=== PATIENT | female | born 2000 | race American Indian/Alaskan Native ===

== ENCOUNTER 2021-04-12 20:40 | Inpatient (IN) | payer MEDICAID ==
[2021-04-12] MEDS ORDERED: ACETAMINOPHEN 325 MG TAB PO PRN (21:37)
[2021-04-12] MEDS ORDERED: MINERAL OIL 30 ML ORAL LIQD PO PRN (21:37)
[2021-04-12] MEDS ORDERED: miSOPROStol 200 MCG TAB PR PRN (21:37)
[2021-04-12] MEDS ORDERED: METHYLERGONOVINE MALEATE 0.2 MG/ML VIAL IM PRN (21:37)
[2021-04-12] MEDS ORDERED: LOPERAMIDE 2 MG CAP PO PRN (21:37)
[2021-04-12] MEDS ORDERED: BUTORPHANOL 2 MG/1 ML INJ IV PRN (21:37)
[2021-04-12] MEDS ORDERED: ePHEDrine SULFATE 50 MG/1 ML INJ IV PRN (21:37)
[2021-04-12] MEDS ORDERED: LIDOCAINE (2%) 20 MG/1 ML VIAL 20 ML MDV INFILTRATI ONE (21:37)
[2021-04-12] MEDS ORDERED: NALOXONE 0.4 MG/1 ML INJ IV PRN (21:37)
[2021-04-12] MEDS ORDERED: CARBOPROST TROMETHAMINE 250 MCG/1 ML INJ IM PRN (21:37)
[2021-04-12] MEDS ORDERED: ONDANSETRON 4 MG/2 ML INJ IV PRN (21:37)
[2021-04-12] MEDS ORDERED: OXYTOCIN 10 UNIT/1 ML INJ IM PRN (21:37)
[2021-04-12] MEDS ORDERED: TERBUTALINE 1 MG/1 ML INJ SUB-Q PRN (21:37)
[2021-04-12] MEDS ORDERED: fentaNYL 100 MCG/2 ML INJ IV PRN (21:37)
[2021-04-12] MEDS ORDERED: OXYTOCIN DRIP 30 UNITS/500 ML BAG IV SCH ×2 (22:00)
[2021-04-12] MEDS ORDERED: DINOPROSTONE 10 MG VAG SUPP VG ONE (23:00)
[2021-04-12] MEDS: LACTATED RINGERS 1,000 ML IV SCH (23:45)
[2021-04-12 23:48] LABS: Hematocrit 33.1 % (30.3-42.9); Hemoglobin 11.2 gm/dl (10.1-14.3); Mean Corpuscular HGB Conc 34 % (30-34); Mean Corpuscular Volume 91 fl (79-97); Platelet Count 212 K/mm3 (140-440); Red Blood Count 3.65 M/mm3 (3.65-5.03); Red Cell Distribution Width 13.6 % (13.2-15.2)
[2021-04-13] MEDS: LACTATED RINGERS 1,000 ML IV SCH ×2 (04:22→16:39)
[2021-04-13] MEDS ORDERED: LEVOTHYROXINE 112 MCG TAB PO SCH (06:00)
--- NOTE | 2021-04-13 07:02 | History and Physical Report ---
History of Present Illness Date of examination: 04/13/21 Date of admission: 04/12/21 20:40 Chief complaint: scheduled induction of labor History of present illness: Pt is a 20 year old -Citizen Of [place] female primigravida ANGELA 04/25/21 at 38w2d who presents for scheduled induction of labor secondary to asymmetric IUGR. She denies vaginal bleeding, leakage of fluid or contractions. She has had care at [place] [facility] OUTFIT[facility] with comanagement by M since transferring to care at 29 weeks complicated by hypothyroidism after thyroidectomy and radiation secondary to thyroid malignancy currently on levothyroxine 224 mcg daily and obesity. She is GBS negative. Past History Past Medical History: thyroid disease Past Surgical History: thyroid Social history: no significant social history - Obstetrical History Expected Date of Delivery: 04/25/21 Actual Gestation: 38 Week(s) 2 Day(s) : 1 Medications and Allergies Allergies Allergy/AdvReac Type Severity Reaction Status Date / Time No Known Allergies Allergy Verified 04/12/21 22:49 Home Medications Medication Instructions Recorded Confirmed Last Taken Type Levothyroxine 300 mg PO DAILY 04/12/21 04/12/21 04/10/21 History 300 MG Vitamin 1 mg PO DAILY 04/12/21 04/12/21 04/10/21 History 1 Active Meds: Active Medications Acetaminophen (Acetaminophen 325 Mg Tab) 650 mg PO Q4H PRN PRN Reason: Pain, Mild (1-3) Last Admin: 04/13/21 03:13 Dose: 650 mg Documented by: Butorphanol Tartrate (Butorphanol 2 Mg/1 Ml Inj) 1 mg IV Q2H PRN PRN Reason: Pain, Moderate(4-6) LABOR PAIN Carboprost Tromethamine (Carboprost Tromethamine 250 Mcg/1 Ml Inj) 250 mcg IM ONCE PRN PRN Reason: Uterine Bleeding Ephedrine Sulfate (Ephedrine Sulfate 50 Mg/1 Ml Inj) 10 mg IV Q2M PRN PRN Reason: Hypotension Fentanyl (Fentanyl 100 Mcg/2 Ml Inj) 100 mcg IV Q2H PRN PRN Reason: Pain,Severe (7-10) LABOR PAIN Last Admin: 04/13/21 05:33 Dose: 100 mcg Documented by: Oxytocin/Sodium Chloride (Pitocin/Ns 30 Unit/500ml) 30 units in 500 mls @ 2 mls/hr IV TITR TONYA; Protocol Lactated Ringer's (Lactated Ringers) 1,000 mls @ 125 mls/hr IV DIRECT TONYA Last Admin: 04/13/21 04:22 Dose: 125 mls/hr Documented by: Oxytocin/Sodium Chloride (Pitocin/Ns 30 Unit/500ml) 30 units in 500 mls @ 40 mls/hr IV TITR TONYA; Protocol Levothyroxine Sodium (Levothyroxine 112 Mcg Tab) 224 mcg PO DAILY@0600 TONYA Last Admin: 04/13/21 05:35 Dose: 224 mcg Documented by: Loperamide HCl (Loperamide 2 Mg Cap) 2 mg PO ONCE PRN PRN Reason: give with Hemabate Methylergonovine Maleate (Methylergonovine Maleate 0.2 Mg/Ml Vial) 0.2 mg IM ONCE PRN PRN Reason: Uterine Bleeding Mineral Oil (Mineral Oil 30 Ml Oral Liqd) 30 ml PO QHS PRN PRN Reason: Constipation Misoprostol (Misoprostol 200 Mcg Tab) 800 mcg NH ONCE PRN PRN Reason: Uterine Bleeding Naloxone HCl (Naloxone 0.4 Mg/1 Ml Inj) 0.1 mg IV Q2MIN PRN PRN Reason: Res Rate </= 8 or 02 SAT < 92% Ondansetron HCl (Ondansetron 4 Mg/2 Ml Inj) 4 mg IV Q8H PRN PRN Reason: Nausea And Vomiting Last Admin: 04/13/21 05:33 Dose: 4 mg Documented by: Oxytocin (Oxytocin 10 Unit/1 Ml Inj) 10 unit IM ONCE PRN PRN Reason: Uterine Bleeding Review of Systems All systems: negative - Vital Signs Vital signs: Vital Signs Temp Pulse Resp BP Pulse Ox 98.1 F 84 18 112/70 98 04/12/21 22:20 04/12/21 22:20 04/12/21 22:20 04/12/21 22:20 04/12/21 22:20 Temp Pulse Resp BP Pulse Ox 98.1 F 100 H 18 116/58 97 04/12/21 22:20 04/13/21 06:53 04/13/21 04:13 04/13/21 06:21 04/13/21 06:53 - Physical Exam Abdomen: Positive: soft (gravid, obese ) Uterus: Positive: enlarged (gravid ) Extremities: Positive: normal - Obstetrical FHR: auscultation normal Cervical Dilatation: 0 Uterine Contraction Pattern: Irregular Uterine Tone Measurement Phase: Resting Uterine Contraction Intensity: Mild Results Result Diagrams: 04/12/21 23:15 All other labs normal. Assessment and Plan A: IUP at 38w2d Asymmetric IUGR Hypothyroidism on Levothyroxine Obesity GBS Negative P: Admit to labor and delivery Levothyroxine 224 mcg daily Cervical ripening with Cervidil Routine intrapartum care
[2021-04-13] MEDS ORDERED: miSOPROStol 25 MCG TAB PO SCH (10:00)
[2021-04-13] MEDS ORDERED: NALOXONE 2 MG/2 ML INJ IV PRN (12:56)
[2021-04-13] MEDS ORDERED: ePHEDrine SULFATE 50 MG/1 ML INJ IV PRN (12:56)
[2021-04-13] MEDS ORDERED: diphenhydrAMINE 50 MG/ML VIAL IV PRN (12:56)
[2021-04-13] MEDS ORDERED: ONDANSETRON 4 MG/2 ML INJ IV PRN ×2 (12:56→17:16)
[2021-04-13] MEDS ORDERED: NalbUPHINE 10 MG/1 ML INJ IV PRN (12:56)
--- NOTE | 2021-04-13 13:21 | Anesthesia Consultation ---
Anesthesia Consult and Med Hx Date of service: 04/13/21 - Airway Anesthetic Teeth Evaluation: Good ROM Head & Neck: Adequate Mental/Hyoid Distance: Adequate Mallampati Class: Class III Intubation Access Assessment: Probably Good - Pulmonary Exam CTA: Yes - Cardiac Exam Cardiac Exam: RRR - Pre-Operative Health Status ASA Pre-Surgery Classification: ASA2 Proposed Anesthetic Plan: Epidural - Pulmonary Hx Smoking: No Hx Asthma: No COPD: No Hx Pneumonia: No Hx Sleep Apnea: No - Cardiovascular System Hx Hypertension: No Hx Heart Attack/AMI: No Hx Angina: No - Central Nervous System Hx Seizures: No Hx Psychiatric Problems: No - Gastrointestinal Hx Gastroesophageal Reflux Disease: No - Endocrine Hx Renal Disease: No Hx End Stage Renal Disease: No Hx Liver Disease: No Hx Insulin Dependent Diabetes: No Hx Non-Insulin Dependent Diabetes: No Hx Hypothyroidism: Yes Hx Hyperthyroidism: No - Hematic Hx Anemia: No Hx Sickle Cell Disease: No - Other Systems Hx Alcohol Use: No
--- NOTE | 2021-04-13 13:22 | Progress Note ---
Labor Epidural - Labor Epidural Start Time: 13:04 Stop Time: 13:15 Performed by:: CISCO CANDELARIO Procedure: Patient is requesting epidural for labor and pain. H&P, labs were reviewed. Patient IDed, H&P reviewed, all questions and concerns were answered, and consent was signed. Timeout was performed at bedside. Patient in sitting position. Sterile prep and drape was performed. 3ml of 1% lidocaine skin wheal at L[3]- L [4]. 18-gauge Tuohy epidural needle was advanced to loss of resistance with air technique 7cm. Negative CSF negative blood. Epidural catheter advanced to [12] centimeters. [negative] Aspiration [negative] test dose. Sterile dressing applied. Patient tolerated procedure.
[2021-04-13] MEDS ORDERED: fentaNYL-BUPIV 2 MCG/ML-0.125% 200 MCG/100 ML BAG EPIDURAL SCH (14:00)
[2021-04-13] MEDS ORDERED: LACTATED RINGERS 250 ML IV SOLN IV ONE (14:00)
[2021-04-13] MEDS ORDERED: miSOPROStol 25 MCG TAB VG SCH (16:00)
[2021-04-13] MEDS ORDERED: LACTATED RINGERS 1,000 ML IV SCH (17:15)
[2021-04-13] MEDS ORDERED: BICITRA ORAL LIQD 30ML ONE (17:15)
[2021-04-13] MEDS ORDERED: HYDROmorphone 1 MG/1 ML INJ IV PRN (17:16)
[2021-04-13] MEDS ORDERED: NALOXONE 0.4 MG/1 ML INJ IV PRN ×2 (17:16→21:34)
[2021-04-13] MEDS ORDERED: FAMOTIDINE 20 MG/2 ML INJ IV ONE ×2 (17:16→18:00)
[2021-04-13] MEDS ORDERED: PROMETHAZINE 25 MG TAB PO PRN (17:16)
[2021-04-13] MEDS ORDERED: PROMETHAZINE 25 MG RECT SUPP PR PRN (17:16)
[2021-04-13] MEDS ORDERED: ceFAZolin/Water 2 GM/20 ML 2 GM/20 ML SYRINGE IV ONE (17:17)
[2021-04-13] MEDS ORDERED: OXYTOCIN DRIP 30 UNITS/500 ML BAG IV SCH ×2 (18:00→21:34)
[2021-04-13] MEDS ORDERED: BUPIVACAINE/PF (0.25%) 2.5 MG/ML 30 ML VIAL INFILTRATI ONE (18:03)
[2021-04-13] MEDS ORDERED: KETOROLAC 30 MG/1 ML INJ ONE (18:03)
[2021-04-13] MEDS ORDERED: LIDOCAINE 2%/EPINEPHRINE 1:200,000 VIAL (20 ML) INFILTRATI ONE (18:03)
[2021-04-13] MEDS ORDERED: dexAMETHasone 20 MG/5 ML VIAL ONE (18:03)
[2021-04-13] MEDS ORDERED: LACTATED RINGERS 1,000 ML ONE (18:07)
[2021-04-13] MEDS ORDERED: BICITRA ORAL LIQD 30ML PO ONE (18:30)
[2021-04-13] MEDS ORDERED: METOCLOPRAMIDE 10 MG/2 ML INJ IV ONE (18:30)
[2021-04-13] MEDS ORDERED: OXYTOCIN 10 UNIT/1 ML INJ ONE (18:50)
--- NOTE | 2021-04-13 19:06 | Procedure Note ---
OB Delivery Note - Delivery Date of Delivery: 04/13/21 Surgeon: YUNIEL JERRY Estimated blood loss: other (445 mL) - Section Preop diagnosis: nonreassuring FHR tracing Postop diagnosis: same section procedure: section, primary low transverse Disposition: PACU Narrative: Please see operative report - Infant A at 1 minute: 8 at 5 minutes: 9 Infant Gender: Female (2420g (5lb 5oz) @ 1809 pm)
--- NOTE | 2021-04-13 19:30 | Operative Report ---
Operative Report Operative Report: Date of procedure: April 13, 2021 Preoperative Diagnosis: 1) IUP at 38w3d 2) Repetitive late decelerations 3) Obesity 4) IUGR Postoperative Diagnosis: Same Procedure: Primary low transverse section Surgeon: Ciara Traylor M.D. Anesthesia: Regional Findings: 1) Viable female , Apgars 8 and 9, weight 2420 g, (5 lb 5 oz) in cephalic presentation. Nuchal Cord x 1. 2) Normal-appearing uterus ovaries and tubes Estimated blood loss: 445 mL IV fluids: 1400 mL Urine output: 200 mL, clear at the end of the procedure Drains: Short to gravity Specimens: None Complications:None. Counts correct x 3 Disposition: Stable to PACU Indication for procedure: Pt is a 20 year old primigravida at 38w3d presents for induction of labor secondary to IUGR. She progressed to 3 cm and began to have repetitive lates. The decision was made to proceed with section. Operation in detail: After the risks, benefits, alternatives and complications were explained to the patient she gave informed consent for the procedure. She was subsequently taken to the operating room where regional anesthesia was noted to be adequate. She was placed in the dorsal supine position with leftward tilt and prepped and draped in a normal sterile fashion. heart tones were noted prior to incision. A timeout was performed. A Pfannenstiel skin incision was made with the knife and carried down to the layer of the fascia with the Bovie. The fascia was incised in the midline and the fascial incision was extended bilaterally with the Bovie. The fascial incision was then stretched. The rectus muscles were then in the midline and partially transected for adequate visualization. The peritoneum was then entered bluntly. The peritoneal incision was extended with good visualization of the bladder. The peritoneal incision was then stretched. An Rito retractor was placed. The bladder blade was then placed. The vesicouterine peritoneum was grasped with smooth pick ups and incised with Metzenbaum scissors . A bladder flap was then created digitally and the bladder blade was replaced. A transverse incision was made in the lower uterine segment with a knife and extended bilaterally with the bandage scissors. Amniotomy was performed with egress of clear fluid. head delivered with ease, followed by shoulders and body. bulb suctioned at delivery. Cord clamped and cut. handed to NICU staff in attendance. Cord blood was collected. The placenta was then delivered manually. The uterus was then exteriorized and cleared of all clots and debris. The hysterotomy was then reapproximated with 0 Monocryl in a running locked fashion. A second layer of the same suture was used in imbricating fashion. The hysterotomy was inspected and hemostasis was noted. The gutters were irrigated and cleared of all clots and debris. The uterus was placed back into the p eritoneal cavity. The hysterotomy was again inspected and noted to be hemostatic. Surgicel was placed over the hysterotomy. The Rito retractor was removed. The peritoneum was reapproximated with 0 Monocryl in a running fashion incorporating the rectus muscles. Surgicel was placed over the rectus muscles. The fascia was reapproximated with 0 Vicryl in a running fashion. The subcutaneous tissue was reapproximated with 3-0 Vicryl in a running fashion. The skin was reapproximated with 3-0 Monocryl in a subcuticular fashion. The incision was then covered with steri strips and a pressure dressing. The procedure was then ended. The patient tolerated the procedure well and was taken to the PACU in stable condition. All instrument, lap, and needle counts were correct 3.
[2021-04-13] MEDS ORDERED: IBUPROFEN 800 MG TAB PO PRN (21:34)
[2021-04-13] MEDS ORDERED: MORPHINE 4 MG/1 ML INJ IV PRN (21:34)
[2021-04-13] MEDS ORDERED: SIMETHICONE 80 MG CHEW TAB PO PRN (21:34)
[2021-04-13] MEDS ORDERED: LANOLIN/ZINC/DIMETHICONE (LANSINOH) 7 GM TP PRN (21:34)
[2021-04-13] MEDS ORDERED: MAGNESIUM HYDROXIDE (MOM) ORAL LIQD UDC PO PRN (21:34)
[2021-04-13] MEDS ORDERED: HYDROcodone/ACETAMINOPHEN 5-325 MG TAB PO PRN (21:34)
[2021-04-13] MEDS ORDERED: MORPHINE 2 MG/1 ML INJ IV PRN (21:34)
[2021-04-13] MEDS ORDERED: D5W/LACTATED RINGERS 1,000 ML IV SCH (21:34)
[2021-04-13] MEDS ORDERED: WITCH HAZEL/ GLYCERIN PAD TP PRN (21:34)
[2021-04-14] MEDS: ceFAZolin/NS 1 GM/50 ML 1 GM/50 ML BAG IV SCH ×2 (02:00→10:13)
[2021-04-14] MEDS: KETOROLAC 30 MG/1 ML INJ IV SCH ×3 (05:37→12:53)
[2021-04-14] MEDS: LEVOTHYROXINE 112 MCG TAB PO SCH (05:56)
--- NOTE | 2021-04-14 08:04 | Progress Note ---
Assessment and Plan - Patient Problems (1) Status post primary low transverse section Current Visit: Yes Status: Acute Plan to address problem: Continue routine PP orders Keep dressing clean and dry, remove on POD#2 Pain meds as needed, alternating between Ibuprofen and narcotics Anticipate d/c home in 24-48 hrs if stable (2) Hypothyroidism Current Visit: Yes Status: Acute Qualifiers: Hypothyroidism type: unspecified Qualified Code(s): E03.9 - Hypothyroidism, unspecified Plan to address problem: Continue daily synthroid as directed Subjective - Subjective Date of service: 04/14/21 Principal diagnosis: S/P primary C/S; POD#1 Interval history: Pt is a 20 year old -[place]ag[place] female primigravida ANGELA 04/25/21 at 38w2d who presents for scheduled induction of labor secondary to asymmetric IUGR. She denies vaginal bleeding, leakage of fluid or contractions. 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 She is GBS negative. She progressed to 3 cm and began to have repetitive lates. The decision was made to proceed with section. Patient reports: appetite normal, flatus, pain poorly controlled (states she has only taken pain medications one time, advised to request pain meds as needed for better pain control, verbalized understanding.), no voiding normally (Short catheter recently removed, awaiting first void), no bowel movement, no ambulating normally (has not been out of bed yet since catheter was removed) : doing well, bottle feeding (and ) Objective - Vital Signs Latest vital signs: Vital Signs Temp Pulse Resp BP BP Pulse Ox Pulse Ox 04/14/21 04:07 97.8 F 70 18 110/67 95 04/14/21 02:26 98 04/14/21 01:56 98 04/14/21 01:00 97.2 F L 54 L 18 113/72 97 04/13/21 20:55 98.3 F 56 L 18 93/63 97 97 04/13/21 20:28 97.7 F 57 L 20 133/54 98 04/13/21 20:20 51 L 20 123/71 99 04/13/21 20:16 54 L 20 127/54 99 04/13/21 20:00 97.7 F 56 L 18 133/71 99 04/13/21 19:55 55 L 20 123/72 99 04/13/21 19:45 57 L 18 119/71 99 04/13/21 19:30 65 18 120/79 99 04/13/21 19:25 68 18 117/55 99 04/13/21 19:20 69 20 118/61 100 04/13/21 19:10 97.5 F L 72 18 112/68 99 04/13/21 17:37 69 119/62 100 04/13/21 17:32 69 100 04/13/21 17:27 77 100 04/13/21 17:22 75 100 04/13/21 17:17 65 100 04/13/21 17:12 58 L 100 04/13/21 17:09 57 L 129/69 04/13/21 17:07 80 100 04/13/21 17:02 68 100 04/13/21 16:57 61 100 04/13/21 16:52 67 118/65 100 04/13/21 16:47 63 100 04/13/21 16:42 65 100 04/13/21 16:38 73 111/58 04/13/21 16:37 63 100 04/13/21 16:32 76 97 04/13/21 16:27 71 97 04/13/21 16:22 68 112/68 97 04/13/21 16:17 70 97 04/13/21 16:12 66 98 04/13/21 16:08 67 107/56 04/13/21 16:07 87 94 04/13/21 16:02 63 95 04/13/21 15:57 74 97 04/13/21 15:54 70 107/58 04/13/21 15:52 67 98 04/13/21 15:47 73 98 04/13/21 15:42 70 98 04/13/21 15:39 81 111/58 04/13/21 15:37 73 98 04/13/21 15:32 76 99 04/13/21 15:27 69 97 04/13/21 15:22 73 105/58 97 04/13/21 15:17 69 99 04/13/21 15:15 98.1 F 18 04/13/21 15:12 68 98 04/13/21 15:07 67 101/57 99 04/13/21 15:02 67 100 04/13/21 14:57 71 97 04/13/21 14:52 70 104/59 97 04/13/21 14:47 68 96 04/13/21 14:42 71 97 04/13/21 14:38 68 103/60 04/13/21 14:37 69 97 04/13/21 14:32 69 97 04/13/21 14:27 69 96 04/13/21 14:23 64 92/55 04/13/21 14:22 64 97 04/13/21 14:17 65 97 04/13/21 14:12 64 97 04/13/21 14:08 63 93/51 04/13/21 14:07 65 96 04/13/21 14:02 64 97 04/13/21 13:57 69 97 04/13/21 13:53 65 107/57 04/13/21 13:52 68 98 04/13/21 13:47 65 97 04/13/21 13:42 65 97 04/13/21 13:37 63 98 04/13/21 13:35 61 115/58 04/13/21 13:32 59 L 99 04/13/21 13:31 65 93/54 04/13/21 13:30 67 93/51 04/13/21 13:28 72 87/49 04/13/21 13:27 76 98 04/13/21 13:25 67 102/56 04/13/21 13:22 68 97 04/13/21 13:20 68 104/58 04/13/21 13:17 81 97 04/13/21 13:14 83 108/61 04/13/21 13:13 72 109/59 04/13/21 13:12 88 98 04/13/21 13:09 74 116/57 04/13/21 13:08 83 87 04/13/21 13:07 77 98 04/13/21 13:04 76 117/61 04/13/21 13:02 83 98 04/13/21 13:00 74 112/67 04/13/21 12:57 72 99 04/13/21 12:45 86 95 04/13/21 12:44 75 92 04/13/21 12:40 77 94 04/13/21 12:37 82 91 04/13/21 12:35 83 95 04/13/21 12:31 70 93 04/13/21 12:30 75 99 04/13/21 12:25 105 H 96 04/13/21 12:20 86 99 04/13/21 12:17 73 94 04/13/21 12:15 92 H 96 04/13/21 12:11 91 H 93 04/13/21 12:10 100 H 98 04/13/21 12:05 73 96 04/13/21 12:04 70 94 04/13/21 12:00 87 98 04/13/21 11:58 71 92 04/13/21 11:55 77 99 04/13/21 11:52 99 H 92 04/13/21 11:50 98 H 98 04/13/21 11:46 77 94 04/13/21 11:45 84 98 04/13/21 11:41 75 90 04/13/21 11:40 92 H 97 04/13/21 11:35 72 95 04/13/21 11:30 79 96 04/13/21 11:25 87 95 04/13/21 11:20 85 96 04/13/21 11:15 78 110/65 95 04/13/21 11:13 97.5 F L 80 18 96 04/13/21 09:25 111 H 96 04/13/21 09:24 88 93 04/13/21 09:20 100 H 95 04/13/21 09:15 88 96 04/13/21 09:10 97 H 97 04/13/21 09:05 98 H 96 04/13/21 08:53 93 H 97 04/13/21 08:48 91 H 96 04/13/21 08:43 101 H 97 04/13/21 08:38 90 95 04/13/21 08:34 100 H 93 04/13/21 08:33 102 H 95 04/13/21 08:28 110 H 98 04/13/21 08:27 99 H 92 04/13/21 08:23 116 H 97 04/13/21 08:18 107 H 97 04/13/21 08:14 99 H 94 04/13/21 08:13 111 H 97 04/13/21 08:08 103 H 93 04/13/21 08:05 100 H 95/54 Intake and Output 04/13/21 04/14/21 04/14/21 23:59 07:59 15:59 Intake Total 187 Output Total 1300 400 Balance 575 -400 Intake: IV 1874 Output: Urine 1300 400 Indwelling Catheter 200 Uretheral (Short) 600 400 Other: Total, Output Amount 200 Estimated Blood Loss 450 - Exam Breasts: Present: normal Cardiovascular: Present: Regular rate Lungs: Present: Normal air movement Abdomen: Present: soft, tenderness Uterus: Present: firm, fundal height below umbilicus (U-2) Extremities: Present: edema (RLE edema, denies pain, good pedal pulses noted) Deep Tendon Reflex Grade: Normal +2 Incision: Present: dressed (no shadow drainage or bleeding noted)
[2021-04-14] MEDS: oxyCODONE /ACETAMINOPHEN 5-325MG TAB PO PRN ×2 (08:07→18:10)
[2021-04-14 11:12] LABS: Hematocrit 30.3 % (30.3-42.9); Hemoglobin 10.2 gm/dl (10.1-14.3)
--- NOTE | 2021-04-14 12:29 | Post Anesthesia Evaluation ---
- Post Anesthesia Evaluation Patient Participated: Yes Airway Patent: Yes Stable Respiratory Function: Yes Nausea/Vomiting: No Temp > 96.8F: Yes Pain Manageable: Yes Adequeate Hydration: Yes Anesthesia Complications: No Block Receding Appropriately: Yes Patient on Ventilator: No
[2021-04-14] MEDS ORDERED: MEASLES, MUMPS & RUBELLA 12,500 UNIT/0.5 ML VACCINE SUB-Q ONE (19:32)
[2021-04-15] MEDS ORDERED: TETANUS,DIPH,PERTUSS(ACELL) VACCINE 0.5 ML SYRINGE IM ONE (06:00)
[2021-04-15] MEDS: KETOROLAC 30 MG/1 ML INJ IV SCH ×2 (06:51)
[2021-04-15] MEDS: LEVOTHYROXINE 112 MCG TAB PO SCH (06:52)
[2021-04-15] MEDS: oxyCODONE /ACETAMINOPHEN 5-325MG TAB PO PRN ×2 (07:04→14:50)
--- NOTE | 2021-04-15 08:52 | Discharge Summary ---
Providers - Providers Date of Admission: 04/12/21 20:40 Date of discharge: 04/15/21 Attending physician: YUNIEL JERRY 04/13/21 21:34 Consult to Manager Of Enterprise [CONS] Routine Reason For Exam: Primary care physician: YUNIEL JERRY Hospitalization Reason for admission: induction of labor Delivery: Procedure: primary low transverse Episiotomy: none Laceration: none Incision: dry, intact (no drainage or bleeding noted) Other procedures: none complications: none Discharge diagnosis: IUP at term delivered [place] baby: female Hospital course: Pt is a 20 year old -[place] female primigravida ANGELA 04/25/21 at 38w2d who presents for scheduled induction of labor secondary to asymmetric IUGR. She denies vaginal bleeding, leakage of fluid or contractions. 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 She is GBS negative. She progressed to 3 cm and began to have repetitive lates. The decision was made to proceed with section Condition at discharge: Stable Disposition: 01 HOME / SELF CARE / HOMELESS - Discharge Diagnoses (1) Status post primary low transverse section Status: Acute (2) Hypothyroidism Status: Acute Qualifiers: Hypothyroidism type: unspecified Qualified Code(s): E03.9 - Hypothyroidism, unspecified Plan - Discharge Medications Prescriptions: Ibuprofen [Motrin 800 MG tab] 800 mg PO Q8HR PRN 7 Days #21 tablet PRN Reason: Pain, Moderate (4-6) - Provider Discharge Summary Additional instructions: [] Smoking cessation referral if applicable(refer to patient education folder for contact #) [] Refer to [facility] Booklet Call your doctor immediately for: * Fever > 100.5 * Heavy vaginal bleeding ( >1 pad per hour) * Severe persistent headache * Shortness of breath * Reddened, hot, painful area to leg or breast * Drainage or odor from incision. * Keep incision clean and dry at all times and follow doctor's instructions regarding bathing/showering - Follow up plan Follow up: YUNIEL JERRY MD [Primary Care Provider] - 14 Days
[2021-04-15 09:37] VITALS: BP 100/65
== END 2021-04-15 18:40 | disposition home or self-care (01) | DRG 766 ==
LOC: LD 20:40 → OB 04-13 20:44
PROVIDERS: ADMIT Obstetrics & Gynecology; ATTEND Obstetrics & Gynecology
PROC: 10D00Z1 Extraction of Products of Conception, Low, Open Approach (ICD-10-PCS; principal; 2021-04-13)
PROC: 3E0234Z Introduction of Serum, Toxoid and Vaccine into Muscle, Percutaneous Approach (ICD-10-PCS; 2021-04-14)
DX: O36.5930 Maternal care for other known or suspected poor fetal growth, third trimester, not applicable or unspecified (principal); E03.9 Hypothyroidism, unspecified; Z37.0 Single live birth; Z20.822 Contact with and (suspected) exposure to COVID-19; Z23 Encounter for immunization; Z3A.38 38 weeks gestation of pregnancy; O99.214 Obesity complicating childbirth; E66.9 Obesity, unspecified; O99.284 Endocrine, nutritional and metabolic diseases complicating childbirth; O76 Abnormality in fetal heart rate and rhythm complicating labor and delivery
CPT/HCPCS: 36415; 59200; 85014; 85018; 85027; 86592; 86850; 86900; 86901; 99211; G0378; G0463; J0595; J0690; J1100; J1885; J2270; J2405; J2590; J2765; J3010; J3105; J7120; J7121; U0003